=== PATIENT | male | born 1980 | race Caucasian/White ===

== ENCOUNTER → 2018-03-24 | Outpatient (CLI) | payer OTHER ==
[2016-01-20 07:17] VITALS: BP 118/70
[~2018-03-24] MED LIST: CIPR250T30 PO; HYDR-3165 PO; ONDA4TAB10 PO; TAMS0.4C97 PO
--- NOTE | 2018-03-24 13:54 | RAD ---
Two-view left toe 03/24/2018 CLINICAL INDICATION: Left toe injury after fall. COMPARISON: None. FINDINGS: No acute fracture or traumatic malalignment of the 2nd toe. Soft tissue swelling at the distal 2nd toe level. IMPRESSION: No acute osseous abnormality of the 2nd toe. Electronically signed by: Haile Capps MD (03/24/2018 1:51 PM) [id number]
== END | disposition home or self-care (01) ==
LOC: RAD 09:10
PROVIDERS: ATTEND Physician Assistant Medical
DX: S90.122A Contusion of left lesser toe(s) without damage to nail, initial encounter (principal); W20.8XXA Other cause of strike by thrown, projected or falling object, initial encounter; Y93.89 Activity, other specified; Y92.89 Other specified places as the place of occurrence of the external cause; Y99.8 Other external cause status
CPT/HCPCS: 73660

== ENCOUNTER 2020-01-14 11:31 | Emergency (ER) | payer OTHER ==
[~2020-01-14] VITALS: Ht 175.3 cm; Wt 92.8 kg
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
[2020-01-14] MEDS ORDERED: ACETAMINOPHEN 500 MG TABLET PO ONE (12:00)
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
[2020-01-14 13:08] VITALS: BP 132/72
== END 2020-01-14 13:15 | disposition home or self-care (01) ==
LOC: ER 11:31
DX: R51 Headache (principal); M54.2 Cervicalgia; M79.10 Myalgia, unspecified site; Z88.0 Allergy status to penicillin; Z88.1 Allergy status to other antibiotic agents; V49.49XA Driver injured in collision with other motor vehicles in traffic accident, initial encounter; Y93.I9 Activity, other involving external motion; Y92.488 Other paved roadways as the place of occurrence of the external cause; Y99.8 Other external cause status
CPT/HCPCS: 70450; 71045; 72125; 72170; 99285

== ENCOUNTER 2020-02-02 22:21 | Emergency (ER) | payer OTHER ==
[~2020-02-02] VITALS: Ht 175.3 cm; Wt 92.8 kg
[2020-02-02 22:31] VITALS: BP 143/72
--- NOTE | 2020-02-02 23:11 | PHYS DOC ---
Past History Past Medical History: No Pertinent History Past Surgical History: No Surgical History Smoking: Non-smoker Alcohol Use: None Drug Use: None General Adult EDM: Chief Complaint: EYE PROBLEMS HPI: HPI: Scott Don is a 39-year-old male who presents with right eye pain. He states that earlier this morning he began to have a foreign body sensation in his right eye with pain that worsened when he closes his eyes. He denies change in vision, photophobia, or pain with eye movement. 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 He denies specific trauma to the eye but states he has been using metal screws and wiping his eye while fixing the roof. Patient denies welding over the last week. He denies wearing contacts. Patient states that he has had a number of objects in his eye over the last several years. Review of Systems: Review of Systems: Constitutional: Denies fever or chills Eyes: Denies vision change and pain with motion; affirms eye pain and redness HENT: Denies nasal congestion or sore throat Respiratory: Denies cough or shortness of breath Cardiovascular: Denies chest pain or palpitations GI: Denies abdominal pain, nausea, or vomiting : Denies dysuria or hematuria Musculoskeletal: Denies back pain or joint pain Integument: Denies rash or skin lesions Neurologic: Denies headache, focal weakness or sensory changes Complete systems were reviewed and found to be within normal limits, except as documented in this note. Allergies: Allergies: Allergies Coded Allergies Type Severity Reaction Last Updated Verified Penicillins Allergy Intermediate 01/20/16 Yes cephalexin Allergy Intermediate 01/20/16 Yes Physical Exam: PE: Constitutional: Well developed, well nourished, no acute distress, non-toxic appearance HENT: Normocephalic, atraumatic, no tenderness to palpation Eyes: PERRL, EOMI, conjunctiva slightly red on the right, no discharge; on Joseph lamp exam small metal fragment seen on the cornea at about the 5 o'clock position Neck: Normal range of motion, no tenderness, supple Lungs & Thorax: No respiratory distress, equal chest rise and fall Skin: Warm, dry, no erythema, no rash Extremities: No tenderness, ROM intact, no edema Neurologic: Alert and oriented X 3, normal motor function, normal sensory function, no focal deficits noted Psychologic: Affect normal, judgment normal Current Patient Data: Vital Signs: Vital Signs Date Time Temp Pulse Resp B/P (MAP) Pulse Ox O2 Delivery O2 Flow Rate FiO2 02/02/20 22:31 97.9 70 16 143/72 (95) 97 Course & Med Decision Making: Course & Med Decision Making Patient presented with right eye pain as described above. Observation with Joseph lamp revealed metal object on the cornea. Further inspection with slit lamp revealed small metallic fragment with rust ring. Large fragment was able to be successfully removed with bent 18 gauge hypodermic needle. Small rust ring remained. Empiric ophthalmic ointment applied. Patient stable for discharge home with outpatient follow-up with ophthalmology. Discussed findings and plan with patient, who acknowledges understanding and agreement. Randy Disclaimer: Randy Disclaimer: This electronic medical record was generated, in whole or in part, using a voice recognition dictation system. Departure Departure: Impression: Primary Impression: Corneal foreign body with residual material Qualified Codes: T15.01XA - Foreign body in cornea, right eye, initial encounter Disposition: HOME/RESIDENCE PRIOR TO ADM Condition: STABLE Referrals: JARAD MESA MD (PCP) NEIL SOMERS DO Patient Instructions: Eye - Corneal Foreign Body Scripts Erythromycin Base (Erythromycin) 1 Gm Oint...g. 0.25 INCH OP QID for corneal abrasion for 5 Days, #1 TUBE Prov: STEPHANIE ESCUDERO DO 02/03/20 Justification of Admission: Justification of Admission: Justification of Admission Dx: N/A Slit Lamp Exam Procedure Indication: Right corneal foreign body Procedure: The patient was placed in the appropriate sitting position. Anesthesia was obtained with Tetracaine. Fluorescein staining was utilized. The slit lamp exam findings were as follows: Right metallic corneal foreign body with rust ring to 5 o'clock position. Bent edge of 18g hypodermic needle utilized with successful removal of metallic object and majority of rust ring. A slight rust ring remained. No Carmen sign. Empiric antibiotic ointment applied for known corneal abrasion. The patient tolerated the procedure well. Complications: Corneal abrasion due to removal of object. STEPHANIE ESCUDERO DO Feb 02, 2020 23:11
[2020-02-02] MEDS ORDERED: FLUORESCEIN 1MG EYE STRIP. OD ONE (23:15)
[2020-02-02] MEDS ORDERED: TETRACAINE 0.5% OPHTH SOLUTION 4ML BOTTLE. OD ONE (23:15)
[2020-02-02] MEDS ORDERED: DIPH,PERTUSS(ACELL),TET VAC/PF 0.5 ML SYRINGE. VAX IM ONE (23:30)
[2020-02-02] MEDS ORDERED: ERYTHROMYCIN 0.5% OPHTH OINTMENT 1GM TUBE. OD ONE (23:30)
[2020-02-03] MEDS ORDERED: ERYT1OIN6 OP (00:52)
== END 2020-02-03 01:01 | disposition home or self-care (01) ==
LOC: ER 22:21
DX: T15.01XA Foreign body in cornea, right eye, initial encounter (principal); Z88.0 Allergy status to penicillin; Z88.1 Allergy status to other antibiotic agents; X58.XXXA Exposure to other specified factors, initial encounter; Y93.89 Activity, other specified; Y92.89 Other specified places as the place of occurrence of the external cause; Y99.8 Other external cause status
CPT/HCPCS: 65222; 90471; 90715; 99283; 99284

== ENCOUNTER 2020-02-28 20:00 | Emergency (ER) | payer OTHER ==
[~2020-02-28] VITALS: Ht 175.3 cm; Wt 92.8 kg
[~2020-02-28 20:00] MED LIST changes: +ERYT1OIN6 OP
[2020-02-28] MEDS ORDERED: IV NORMAL SALINE 1,000ML 1,000 ML IV SCH (20:19)
--- NOTE | 2020-02-28 20:28 | PHYS DOC ---
Past History Past Medical History: No Pertinent History Past Surgical History: No Surgical History Smoking: Non-smoker Alcohol Use: None Drug Use: None General Adult EDM: Chief Complaint: OTHER COMPLAINTS HPI: HPI: Patient is a 39-year-old male coming in for episode of lightheadedness, burning of his hands and feet, diaphoresis, nausea, weakness. Is cleaning out the trunk of his car when all of a sudden the symptoms started. Laid down on the concrete and was unable to get up for 3 to 5 minutes. Has not been exposed any chemicals. Has not been under stress or doing heavy lifting. Denies anxiety or history of anxiety. States he is feeling better now but still has tingling in his hands and feet. Has also had dry cough symptoms symptoms started 20-30 minutes prior to arrival. Denies any personal cardiac history, mother had bypass in her 60s. Denies tobacco, alcohol, drug use. Denies any history of blood clots. Review of Systems: Review of Systems: Constitutional: Denies fever or chills Eyes: Denies change in visual acuity HENT: Denies nasal congestion or sore throat Respiratory: Dry cough Cardiovascular: Denies chest pain or edema GI: Denies abdominal pain , vomiting, bloody stools or diarrhea did have nausea : Denies dysuria Musculoskeletal: Denies back pain or joint pain Integument: Denies rash Neurologic: Denies headache, focal weakness or sensory changes Endocrine: Denies polyuria or polydipsia Lymphatic: Denies swollen glands Psychiatric: Denies depression or anxiety Heart Score: Risk Factors: Risk Factors: DM, Current or recent (<one month) smoker, HTN, HLP, family history of CAD, obesity. Risk Scores: Score 0 - 3: 2.5% MACE over next 6 weeks - Discharge Home Score 4 - 6: 20.3% MACE over next 6 weeks - Admit for Clinical Observation Score 7 - 10: 72.7% MACE over next 6 weeks - Early Invasive Strategies Allergies: Allergies: Allergies Coded Allergies Type Severity Reaction Last Updated Verified Penicillins Allergy Intermediate 01/20/16 Yes cephalexin Allergy Intermediate 01/20/16 Yes Physical Exam: PE: Constitutional: Well developed, well nourished, no acute distress, non-toxic appearance. [] HENT: Normocephalic, atraumatic, bilateral external ears normal, oropharynx moist, no oral exudates, nose normal. [] Eyes: PERRLA, EOMI, conjunctiva normal, no discharge. [] Neck: Normal range of motion, no tenderness, supple, no stridor. [] Cardiovascular: Sinus tachycardia, regular rhythm, no gallops,, no murmur [] Lungs & Thorax: Bilateral breath sounds clear to auscultation [] Abdomen: Bowel sounds normal, soft, no tenderness, no masses, no pulsatile masses. [] Skin: Warm, dry, no erythema, no rash. [] Back: No tenderness, no CVA tenderness. [] Extremities: No tenderness, no cyanosis, no clubbing, ROM intact, no edema. [] Neurologic: Alert and oriented X 3, normal motor function, normal sensory function, no focal deficits noted. [] Psychologic: Affect normal, judgement normal, mood normal. [] EKG: EKG: Sinus tachycardia, normal axis, no ectopy, no ST elevation or depression. [] Radiology/Procedures: Radiology/Procedures: CT ANGIOGRAPHY CHEST History: Cough. Congestion. Technique: CT of the chest was performed with intravenous contrast. PE protocol. Maximum intensity projection coronal and sagittal reconstructions were performed. Exposure: One or more of the following individualized dose reduction techniques were utilized for this examination: 1. Automated exposure control 2. Adjustment of the mA and/or kV according to patient size 3. Use of iterative reconstruction technique. Comparison: None Findings: Chest: No pulmonary embolism. No aortic aneurysm or dissection. No pathologic lymphadenopathy. No consolidation or pleural effusion. No pneumothorax. Calcified right upper lobe pulmonary nodule. 3 mm right upper lobe pulmonary nodule noncalcified (series 4 image 47). 2 mm left upper lobe pulmonary nodule (image 27). 5 mm lingular nodule (image 74). Upper abdomen: Hepatic steatosis. Bones: No pathologic osseous lesions. Impression: 1. No acute thoracic pathology. No pulmonary embolism. 2. Small pulmonary nodules. Recommend one-year follow-up if high risk. 3. Hepatic steatosis. [] Course & Med Decision Making: Course & Med Decision Making Pertinent Labs and Imaging studies reviewed. (See chart for details) Tachycardia resolved with fluids, elevated creatinine given IV fluids to correct for that also. Work-up negative. Discussed with patient possible presyncopal symptoms and advised to increase fluid intake and follow-up with primary care. Troponin negative x2 3 hours apart [] Dragon Disclaimer: Dragon Disclaimer: This electronic medical record was generated, in whole or in part, using a voice recognition dictation system. Departure Departure: Impression: Primary Impression: Pre-syncope Disposition: 01 DC HOME SELF CARE/HOMELESS Condition: STABLE Referrals: JARAD MESA MD (PCP) Patient Instructions: Dehydration, Adult JARED MCKEON MD Feb 28, 2020 20:28
[2020-02-28] MEDS ORDERED: ACETAMINOPHEN 500 MG TABLET PO ONE ×2 (20:54→21:00)
[2020-02-28 21:04] LABS: BASO # 0.1 x10^3/uL (0.0-0.2); BASO % 1 % (0-3); EOS # 0.1 x10^3/uL (0.0-0.7); EOS % 1 % (0-3); HEMATOCRIT 42.2 % (39.0-53.0); HEMOGLOBIN 13.7 g/dL (13.0-17.5); LYMPH # 1.8 x10^3/uL (1.0-4.8); LYMPH % 16 % (24-48); MEAN CORPUSCULAR HEMOGLOBIN 26 pg (25-35); MEAN CORPUSCULAR HGB CONC 32 g/dL (31-37); MEAN CORPUSCULAR VOLUME 81 fL (79-100); MONO # 0.5 x10^3/uL (0.0-1.1); MONO % 4 % (0-9); NEUT # 8.7 x10^3uL (1.8-7.7); NEUT % 78 % (31-73); PLATELET COUNT 255 x10^3/uL (140-400); RED BLOOD COUNT 5.22 x10^6/uL (4.30-5.70); RED CELL DISTRIBUTION WIDTH 13.9 % (11.5-14.5); WHITE BLOOD COUNT 11.2 x10^3/uL (4.0-11.0)
[2020-02-28 21:05] LABS: CALCIUM 9.4 mg/dL (8.5-10.1); CREATININE 1.5 mg/dL (0.7-1.3); GFR 51.6; POTASSIUM 4.1 mmol/L (3.5-5.1)
[2020-02-28 21:26] LABS: ALBUMIN 3.9 g/dL (3.4-5.0); MAGNESIUM 1.9 mg/dL (1.8-2.4); TOTAL BILIRUBIN 0.2 mg/dL (0.2-1.0); TOTAL PROTEIN 7.9 g/dL (6.4-8.2)
--- NOTE | 2020-02-28 21:26 | RAD ---
CHEST PA LATERAL History: Reason: cough, chills / Spl. Instructions: / History: Comparison: 01/14/2020. Findings: Frontal and lateral views of the chest were obtained. The cardiomediastinal silhouette is normal. Pulmonary vasculature is normal. The lungs are clear. No pleural effusion or pneumothorax is seen. There is no acute bone abnormality. IMPRESSION: No acute cardiopulmonary process. Electronically signed by: Javon Machado MD (02/28/2020 9:23 PM) [facility]
[2020-02-28] MEDS ORDERED: IOHEXOL 350 MG/ML 100 ML VIAL. IV ONE (22:00)
[2020-02-28] MEDS ORDERED: IV NORMAL SALINE 1,000ML 1,000 ML IV ONE (22:00)
--- NOTE | 2020-02-28 23:03 | RAD ---
CT ANGIOGRAPHY CHEST History: Cough. Congestion. Technique: CT of the chest was performed with intravenous contrast. PE protocol. Maximum intensity projection coronal and sagittal reconstructions were performed. Exposure: One or more of the following individualized dose reduction techniques were utilized for this examination: 1. Automated exposure control 2. Adjustment of the mA and/or kV according to patient size 3. Use of iterative reconstruction technique. Comparison: None Findings: Chest: No pulmonary embolism. No aortic aneurysm or dissection. No pathologic lymphadenopathy. No consolidation or pleural effusion. No pneumothorax. Calcified right upper lobe pulmonary nodule. 3 mm right upper lobe pulmonary nodule noncalcified (series 4 image 47). 2 mm left upper lobe pulmonary nodule (image 27). 5 mm lingular nodule (image 74). Upper abdomen: Hepatic steatosis. Bones: No pathologic osseous lesions. Impression: 1. No acute thoracic pathology. No pulmonary embolism. 2. Small pulmonary nodules. Recommend one-year follow-up if high risk. 3. Hepatic steatosis. Electronically signed by: Thuan Garcia DO (02/28/2020 11:00 PM) [facility]
[2020-02-29 00:06] VITALS: BP 127/84
--- NOTE | 2020-02-29 03:46 | EKG ---
[address] [address] Test Date: 2020-02-28 Test Time: 20:49:33 Pat Name: MIGDALIA COSTELLO Department: Room: Gender: M [employer] Installer: : 1980 Requested By: JARED MCKEON Order Number: [id number] Reading MD: Measurements Intervals [place] Rate: 108 P: 38 MS: 156 QRS: 7 QRSD: 96 T: 24 QT: 338 QTc: 457 Interpretive Statements SINUS TACHYCARDIA OTHERWISE NORMAL ECG RI6.02 No previous ECG available for comparison
== END 2020-02-29 00:51 | disposition home or self-care (01) ==
LOC: ER 20:00
DX: R55 Syncope and collapse (principal); Z88.0 Allergy status to penicillin; Z88.1 Allergy status to other antibiotic agents
CPT/HCPCS: 36415; 71046; 71275; 80053; 83735; 83880; 84484; 85025; 93005; 96360; 96361; 99285; J7030; Q9967

== ENCOUNTER 2020-07-30 09:03 | Emergency (ER) | payer OTHER ==
[~2020-07-30] VITALS: Ht 175.3 cm; Wt 96.0 kg
[2020-07-30 09:05] VITALS: BP 142/96
--- NOTE | 2020-07-30 09:50 | PHYS DOC ---
Past History Past Medical History: No Pertinent History, Other Additional Past Medical Histor: chronic necl pain Past Surgical History: No Surgical History Smoking: Non-smoker Alcohol Use: Occasionally Drug Use: None Adult General Chief Complaint Chief Complaint: ABDOMINAL PAIN HPI HPI Patient is a 39yo male presents for right-sided abdominal pain. Onset was ~2mo ago without known inciting event or trauma. Nothing known makes better or worse. Pain is deep and non-radiating located in his RLQ/right flank. Timing has waxed and waned, reports yesterday that pain was severe throughout the day and he almost came into the ER but waited until he was seen by PCP. Today, he went to PCP office and saw MECHANICAL TECHNICAL SERVICE SPECIALIST who was concerned based on physical exam of his abdomen and sent him to our ER for further evaluation. Patient denies any systemic symptoms, CP, SHOB, dysuria, changes in bladder or bowel function or any neurologic findings. He denies any significant medical history, no prior abdominal surgeries. Review of Systems Review of Systems Fourteen body systems of review of systems have been reviewed. See HPI for pertinent positives and negative responses, other godoy all other systems are negative, non-pertinent or non-contributory Allergies Allergies Allergies Coded Allergies Type Severity Reaction Last Updated Verified Penicillins Allergy Intermediate 01/20/16 Yes cephalexin Allergy Intermediate 01/20/16 Yes Physical Exam Physical Exam Constitutional: Well developed, well nourished, no acute distress, non-toxic appearance. HENT: Normocephalic, atraumatic, bilateral external ears normal, oropharynx moist, no oral exudates, nose normal. Eyes: PERRLA, EOMI, conjunctiva normal, no discharge. Neck: Normal range of motion, no tenderness, supple, no stridor. Cardiovascular: Heart rate regular, sinus rhythm, no murmurs rubs or gallops Lungs & Thorax: Bilateral breath sounds clear to auscultation Abdomen: Bowel sounds normal, soft, tender to palpation in right upper and lower quadrants with negative Esquivel sign but positive Rovsing sign, no rebound, no masses, no pulsatile masses. Nonsurgical abdomen, no peritoneal signs Skin: Warm, dry, no erythema, no rash. Back: No tenderness, no CVA tenderness. Extremities: No tenderness, no cyanosis, no clubbing, ROM intact, no edema. Neurologic: Alert and oriented X 3, grossly normal motor & sensory function, no focal deficits noted. Psychologic: Affect normal, judgement normal, mood normal. Current Patient Data Vital Signs Vital Signs Date Time Temp Pulse Resp B/P (MAP) Pulse Ox O2 Delivery O2 Flow Rate FiO2 07/30/20 09:05 97.5 101 16 142/96 (111) 97 Room Air Lab Results Laboratory Tests Test 07/30/20 09:16 White Blood Count 10.6 x10^3/uL Red Blood Count 4.92 x10^6/uL Hemoglobin 13.5 g/dL Hematocrit 41.0 % Mean Corpuscular Volume 83 fL Mean Corpuscular Hemoglobin 27 pg Mean Corpuscular Hemoglobin Concent 33 g/dL Red Cell Distribution Width 14.1 % Platelet Count 201 x10^3/uL Neutrophils (%) (Auto) 71 % Lymphocytes (%) (Auto) 18 % Monocytes (%) (Auto) 9 % Eosinophils (%) (Auto) 2 % Basophils (%) (Auto) 1 % Neutrophils # (Auto) 7.5 x10^3uL Lymphocytes # (Auto) 1.9 x10^3/uL Monocytes # (Auto) 0.9 x10^3/uL Eosinophils # (Auto) 0.2 x10^3/uL Basophils # (Auto) 0.1 x10^3/uL Sodium Level 142 mmol/L Potassium Level 4.4 mmol/L Chloride Level 107 mmol/L Carbon Dioxide Level 25 mmol/L Anion Gap 10 Blood Urea Nitrogen 15 mg/dL Creatinine 1.0 mg/dL Estimated GFR (Cockcroft-Gault) 82.3 BUN/Creatinine Ratio 15 Glucose Level 118 mg/dL Calcium Level 9.0 mg/dL Total Bilirubin 0.2 mg/dL Aspartate Amino Transf (AST/SGOT) 25 U/L Alanine Aminotransferase (ALT/SGPT) 43 U/L Alkaline Phosphatase 74 U/L Total Protein 7.6 g/dL Albumin 4.0 g/dL Albumin/Globulin Ratio 1.1 Lipase 136 U/L Current Medications Medications (Trade) Dose Ordered Sig/Hector Route PRN Reason Start Time Stop Time Status Last Admin Dose Admin Iohexol (Omnipaque 300 Mg/ml) 75 ml 1X ONCE IV 07/30/20 10:00 07/30/20 10:03 DC 07/30/20 10:10 Info (Do NOT chart on this entry -- for MONITORING) 1 each PRN DAILY PRN MC SEE COMMENTS 3/15/21 10:15 07/30/20 11:33 DC EKG EKG [] Radiology/Procedures Radiology/Procedures PROCEDURE: CT ABD PELV W/ IV CONTRST ONLY Examination: CT of the abdomen pelvis with IV contrast History: Right lower quadrant abdominal pain COMPARISON: 01/20/2016 TECHNIQUE: Axial CT images of the abdomen pelvis were performed with IV contrast. Coronal and sagittal reformats are performed. Exposure: One or more of the following individualized dose reduction techniques were utilized for this examination: 1. Automated exposure control 2. Adjustment of the mA and/or kV according to patient size 3. Use of iterative reconstruction technique. FINDINGS: The bibasilar lungs are clear. No evidence of free air identified in the abdomen Diffuse degree attenuation noted in the liver likely hepatic steatosis. The spleen, adrenals grossly appears unremarkable. The gallbladder is mildly distended. The stomach is mildly distended with visualized pancreas grossly appears unremarkable The visualized pancreas grossly appears unremarkable. Small bowel is nondilated. Feces and gas noted in the colon Urinary bladder is mildly distended The appendix is normal The bilateral kidneys enhance symmetrically. There is a 5.8 x 4.5 x 4.5 cm s olid-appearing mass identified in the right abdomen just anterior to the ascending colon, best visualized on series 2 image 48. No evidence of lytic bony destructive lesion. IMPRESSION: 1. A 5.8 cm solid-appearing mass identified in the right abdomen just anterior to the ascending colon, best visualized on series 2 image 48. Differential includes soft tissue mass like desmoid,sarcoma or malignancy or metastasis or enlarged lymph node. 2. Hepatic steatosis. Electronically signed by: Horacio Mercer MD (07/30/2020 10:48 AM) [id number] Heart Score C/O Chest Pain: N/A Risk Factors: Risk Factors: DM, Current or recent (<one month) smoker, HTN, HLP, family history of CAD, obesity. Risk Scores: Risk Factors: DM, Current or recent (<one month) smoker, HTN, HLP, family history of CAD, obesity. Course & Med Decision Making Course & Med Decision Making Hemodynamically stable patient with history and physical concerning for non- surgical abdominal pathology Diagnostic workup ordered and reviewed at length with patient. I discussed c oncerning CT AP findings at length with patient I called patient's PCP and discussed need for admission vs close outpatient foll ow-up and decision was made for close outpatient follow-up to ensure referral for continued workup such as biopsy I provided patient with short course of narcotic pain medication for PRN use for severe pain to use in the interim prior to outpatient PCP and specialist follow-up All questions and concerns addressed prior to ER departure in stable condition Randy Disclaimer Dragon Disclaimer This electronic medical record was generated, in whole or in part, using a voice recognition dictation system. Departure Departure: Impression: Primary Impression: Abdominal mass Disposition: DC HOME SELF CARE/HOMELESS Condition: STABLE Referrals: JARAD MESA MD (PCP) Additional Instructions: As discussed prior to ER departure, your ER visit showed no emergent and/or surgical pathology. With that said, I did disclose findings of your CT abdomen which was concerning for a 6 cm mass. I discussed the differential with you at length. I discussed neck steps of care that will involve meeting with your primary care physician in the outpatient setting and being referred to a spe cialist for further management. I called your primary care physician during your ER visit today and discussed these findings with him, he reports that he will be placing your referral shortly. If any concerning signs or symptoms present prior to outpatient follow-up please do not hesitate to come back for repeat evaluation. It was a pleasure to take care of you and I wish you the best going forward Scripts Hydrocodone/Acetaminophen (Hydrocodone-Acetamin 5-325 mg) 1 Each Tablet 1 EACH PO Q4-6HRS PRN for SEVERE PAIN 7-10, #25 TAB Prov: JOCELINE CARTER DO 07/30/20 JOCELINE CARTER DO Jul 30, 2020 09:50
[2020-07-30] MEDS ORDERED: IOHEXOL 300 MG/ML 75 ML VIAL. IV ONE (10:00)
[2020-07-30 10:14] LABS: BASO # 0.1 x10^3/uL (0.0-0.2); BASO % 1 % (0-3); EOS # 0.2 x10^3/uL (0.0-0.7); EOS % 2 % (0-3); HEMOGLOBIN 13.5 g/dL (13.0-17.5); LYMPH # 1.9 x10^3/uL (1.0-4.8); LYMPH % 18 % (24-48); MEAN CORPUSCULAR HEMOGLOBIN 27 pg (25-35); MEAN CORPUSCULAR HGB CONC 33 g/dL (31-37); MEAN CORPUSCULAR VOLUME 83 fL (79-100); MONO # 0.9 x10^3/uL (0.0-1.1); MONO % 9 % (0-9); NEUT # 7.5 x10^3uL (1.8-7.7); NEUT % 71 % (31-73); PLATELET COUNT 201 x10^3/uL (140-400); RED BLOOD COUNT 4.92 x10^6/uL (4.30-5.70); RED CELL DISTRIBUTION WIDTH 14.1 % (11.5-14.5); WHITE BLOOD COUNT 10.6 x10^3/uL (4.0-11.0)
[2020-07-30] MEDS ORDERED: CONTRAST GIVEN. MC PRN (10:15)
[2020-07-30 10:19] LABS: GFR 82.3; POTASSIUM 4.4 mmol/L (3.5-5.1)
[2020-07-30 10:24] LABS: ALBUMIN/GLOBULIN RATIO 1.1 (1.0-1.7); TOTAL BILIRUBIN 0.2 mg/dL (0.2-1.0); TOTAL PROTEIN 7.6 g/dL (6.4-8.2)
--- NOTE | 2020-07-30 10:51 | RAD ---
Examination: CT of the abdomen pelvis with IV contrast History: Right lower quadrant abdominal pain COMPARISON: 01/20/2016 TECHNIQUE: Axial CT images of the abdomen pelvis were performed with IV contrast. Coronal and sagitta l reformats are performed. Exposure: One or more of the following individualized dose reduction techniques were utilized for th is examination: 1. Automated exposure control 2. Adjustment of the mA and/or kV according to patien t size 3. Use of iterative reconstruction technique. FINDINGS: The bibasilar lungs are clear. No evidence of free air identified in the abdomen Diffuse degree attenuation noted in the liver likely hepatic steatosis. The spleen, adrenals grossly appears unremarkable. The gallbladder is mildly distended. The stomach is mildly distended with visua lized pancreas grossly appears unremarkable The visualized pancreas grossly appears unremarkable. Small bowel is nondilated. Feces and gas noted in the colon Urinary bladder is mildly distended The appendix is normal The bilateral kidneys enhance symmetrically. There is a 5.8 x 4.5 x 4.5 cm solid-appearing mass ident ified in the right abdomen just anterior to the ascending colon, best visualized on series 2 image 48 . No evidence of lytic bony destructive lesion. IMPRESSION: 1. A 5.8 cm solid-appearing mass identified in the right abdomen just anterior to the ascending colon , best visualized on series 2 image 48. Differential includes soft tissue mass like desmoid,sarcoma o r malignancy or metastasis or enlarged lymph node. 2. Hepatic steatosis. Electronically signed by: Horacio Mercer MD (07/30/2020 10:48 AM) [id number]
[2020-07-30] MEDS ORDERED: HYDR-2759 PO (11:27)
== END 2020-07-30 11:28 | disposition home or self-care (01) ==
LOC: ER 09:03
DX: R19.00 Intra-abdominal and pelvic swelling, mass and lump, unspecified site (principal); R10.11 Right upper quadrant pain; R10.31 Right lower quadrant pain; Z88.0 Allergy status to penicillin; Z88.1 Allergy status to other antibiotic agents
CPT/HCPCS: 36415; 74177; 80053; 83690; 85025; 99285; Q9967

== ENCOUNTER 2020-08-03 23:07 | Emergency (ER) | payer OTHER ==
[~2020-08-03 23:07] MED LIST changes: +HYDR-2759 PO
--- NOTE | 2020-08-03 23:12 | PHYS DOC ---
Past History Past Medical History: No Pertinent History, Constipation, Other Additional Past Medical Histor: chronic necl pain Past Surgical History: No Surgical History Smoking: Non-smoker Alcohol Use: Occasionally Drug Use: None General Adult HPI: HPI: Pt. complains of constipation. During check in had a large stool and elected not to be seen. Left from checked in. Patient is a 39 year old male who presents with above hx and complaints consti pation Review of Systems: Review of Systems: GI: Complaints of abdominal pain,constipation Allergies: Allergies: Allergies Coded Allergies Type Severity Reaction Last Updated Verified Penicillins Allergy Intermediate 01/20/16 Yes cephalexin Allergy Intermediate 01/20/16 Yes Physical Exam: PE: No exam- pt. left from check in EKG: EKG: [] Radiology/Procedures: Radiology/Procedures: [] Heart Score: C/O Chest Pain: N/A Risk Factors: Risk Factors: DM, Current or recent (<one month) smoker, HTN, HLP, family history of CAD, obesity. Risk Scores: Score 0 - 3: 2.5% MACE over next 6 weeks - Discharge Home Score 4 - 6: 20.3% MACE over next 6 weeks - Admit for Clinical Observation Score 7 - 10: 72.7% MACE over next 6 weeks - Early Invasive Strategies Course & Med Decision Making: Course & Med Decision Making Pertinent Labs and Imaging studies reviewed. (See chart for details). Pt. had no interview or exam left from lobby during check in after a large stool. Hx. complaints of constipation. [] Dragon Disclaimer: Dragon Disclaimer: This electronic medical record was generated, in whole or in part, using a voice recognition dictation system. Departure Departure: Referrals: JARAD MESA MD (PCP) RAGHAVENDRA MORTENSEN MD Aug 03, 2020 23:12
[2020-08-04] MEDS ORDERED: POLY17PO5 PO (13:18)
[2020-08-06] MEDS ORDERED: ONDA4TAB12 PO (13:00)
[2020-08-06] MEDS ORDERED: SIME80TA13 PO (13:00)
== END 2020-08-03 23:18 | disposition left against medical advice (07) ==
LOC: ER 23:07
DX: K59.00 Constipation, unspecified (principal); R10.9 Unspecified abdominal pain; Z88.0 Allergy status to penicillin; Z88.1 Allergy status to other antibiotic agents; Z53.21 Procedure and treatment not carried out due to patient leaving prior to being seen by health care provider

== ENCOUNTER 2020-08-04 12:19 | Emergency (ER) | payer OTHER ==
[~2020-08-04] VITALS: Ht 175.3 cm; Wt 94.0 kg
[2020-08-04 12:19] VITALS: BP 115/77
--- NOTE | 2020-08-04 12:29 | PHYS DOC ---
Past History Past Medical History: No Pertinent History, Constipation, Other Additional Past Medical Histor: chronic necl pain (STEPHANIE DELEON APRN) Past Surgical History: No Surgical History (STEPHANIE DELEON APRN) Smoking: Non-smoker Alcohol Use: Occasionally Drug Use: None (STEPHANIE DELEON APRN) Adult General Chief Complaint Chief Complaint: CONSTIPATION HPI HPI Patient is a 39-year-old male presents to the emergency department complaining of constipation for the past week. Patient states he has a mass on his abdominal wall on the right upper quadrant for which he sees a surgeon this Thursday at for evaluation of surgery. Patient states he has been taking hydrocodone every 4 hours for the past week however has not taken any for the p ast 3 days. Patient states he has been unable to have a bowel movement since 07/30/2020. Patient reports she has been drinking "lots of water to help ". Patient states last night he drank 3 each 60 mL Ducolox [id number]-[id number] laxatives from [facility] and had his give him 3 fleets enemas last night. Patient states he had a large watery bowel movement after the enemas, had satisfactory pain relief for approximately 5 hours and was able to sleep. Patient denies seeing any blood in his stool. Patient states he awoke this morning with abdominal pain in the left lower quadrant rating a 10/10 on a 1-10 pain scale. Patient denies any nausea or vomiting. Patient denies shortness of breath, recent fever or chills, or chest pain. Patient states he is a non- smoker, does not drink alcohol, does not use any illicit drugs. Patient reports a allergy to penicillin and Keflex, takes no prescription medications at home at this time, has no surgical history. (STEPHANIE DELEON CONTENT DEVELOPMENT SPECIALIST) Review of Systems Review of Systems 14 body systems of review of systems have been reviewed. See HPI for pertinent positives and negative responses, otherwise all other systems are negative, nonpertinent or noncontributory. (STEPHANIE DELEON APRN) Allergies Allergies Allergies Coded Allergies Type Severity Reaction Last Updated Verified Penicillins Allergy Intermediate 01/20/16 Yes cephalexin Allergy Intermediate 01/20/16 Yes (STEPHANIE DELEON CONTENT DEVELOPMENT SPECIALIST) Physical Exam Physical Exam Constitutional: Well developed, well nourished, no acute distress, non-toxic appearance. 39-year-old male, holding abdomen in the left lower quadrant during exam. HENT: Normocephalic, atraumatic, bilateral external ears normal, nose normal in appearance. Eyes: Normal conjunctiva without drainage from eyes visually, patient tracking normally. Cardiovascular:Heart rate regular rhythm, tachycardic with heart rate of 104 d uring exam. Lungs & Thorax: No audible adventitious lung sounds, regular respiratory rate, in no respiratory distress Abdomen: Bowel sounds normal, tenderness to palpation right lateral upper quadrant with mass and abdominal wall appreciated, abdomen distended, pain to palpation left lower quadrant, no other masses appreciated, no areas of ecchymosis in the abdomen, no hernias appreciated. Skin: Warm, dry, no erythema, no rash. Back: No tenderness to palpation of the back. Extremities: Patient moving all extremities during exam. No signs of edema. Neurologic: Alert and oriented X 3, normal motor function, normal sensory function, no focal deficits noted. Psychologic: Affect normal, judgement normal, mood normal. GI: Patient placed in left lateral recumbent position, external exam of rectum did not reveal any external hemorrhoids, digital exam of rectum did not appreciate any masses, scant softened stool in rectal vault, no masses appreciated during digital rectal exam. Patient tolerated well. (STEPHANIE DELEON APRN) EKG EKG [] (STEPHANIE DELEON APRN) Radiology/Procedures Radiology/Procedures PATIENT: MIGDALIA COSTELLO ACCOUNT: [id number] : 1980 LOCATION: ER AGE: 39 SEX: M EXAM STATUS: REG ER ORD. PHYSICIAN: STEPHANIE DELEON APRN REASON: CONSTIPATION, ABDOMINAL PAIN PROCEDURE: KUB XR ABDOMEN 1V History: Reason: CONSTIPATION, ABDOMINAL PAIN / Spl. Instructions: / History: Technique: Supine view the abdomen. Comparison: CT July 30, 2020 Findings: Mild small bowel gas. Air scattered throughout the colon. Mild colonic stool burden. Sclerotic lesion within the left femoral neck, likely bone island. Impression: 1. Nonobstructed bowel gas pattern. Electronically signed by: Thuan Garcia DO (08/04/2020 12:54 PM) [facility] DICTATED AND SIGNED BY: THUAN GARCIA DO DATE: 08/04/20 1252 CC: STEPHANIE DELEON APRN; JARAD MESA MD ~MTH0 0 (STEPHANIE DELEON APRN) Heart Score C/O Chest Pain: No Risk Factors: Risk Factors: DM, Current or recent (<one month) smoker, HTN, HLP, family history of CAD, obesity. Risk Scores: Risk Factors: DM, Current or recent (<one month) smoker, HTN, HLP, family history of CAD, obesity. (STEPHANIE DELEON APRN) Course & Med Decision Making Course & Med Decision Making Pertinent Labs and Imaging studies reviewed. (See chart for details) 39-year-old male, vital signs reviewed, presents to the emergency department concerning constipation for the past 5 days, physical examination concerning for constipation versus bowel obstruction. Will order KUB, perform rectal digital exam after x-ray imaging. Patient is amenable to this plan. X-ray imaging revealed mild scattered bowel gas pattern, digital rectal exam revealed scant soft stool in rectal vault, will treat with magnesium citrate in the ED today. Will discharge home with prescription for MiraLAX. Discussed with patient diagnosis of constipation, most likely from hydrocodone pain medication use, magnesium citrate use, MiraLAX use, increase fluid intake, keep appointment with surgeon on Thursday. Discussed with surgeon today's ER visit, follow-up with primary care this week to manage pain control and constipation problems. Patient gave verbal understanding of discharge home instructions, follow-up with surgeon, follow-up with primary care physician, medication use, return to ER precautions, patient was discharged home. (STEPHANIE DELEON APRN) Course & Med Decision Making I oversaw on the above date of service of this patient and discussed the care with the BLOCK ENGRAVER. I agree with the findings, plan of care, and disposition as documented. Electronically signed, Joceline Carter DO (JOCELINE CARTER DO) Randy Disclaimer Dragon Disclaimer This electronic medical record was generated, in whole or in part, using a voice recognition dictation system. (STEPHANIE DELEON APRN) Departure Departure: Impression: Primary Impression: Constipation Additional Impression: Abdominal mass Disposition: 01 DC HOME SELF CARE/HOMELESS Condition: GOOD Referrals: JARAD MESA MD (PCP) Patient Instructions: Constipation, Adult Additional Instructions: Please take medications as prescribed, follow-up with your primary care Dr. Ng for ongoing pain management and constipation problems, please keep your appointment with the surgeon at , let your surgeon and Dr. Carbone know of your visit today in the emergency department and that you had a [facility] x- ray imaging performed. Please return to the emergency department for worsening symptoms or other concerns. EMERGENCY DEPARTMENT GENERAL DISCHARGE INSTRUCTIONS Thank you for coming to [facility] (ED) today and trusting us with you care. We trust that you had a positivie experience in our Emergency Department. If you wish to speak to the department management, you may call the director at [phone]. YOUR FOLLOW UP INSTRUCTIONS ARE FOLLOWS: 1. Do you have a private Doctor? If you do not have a private doctor, please ask for a resource list of physicians or clinics that may be able to assist you with follow up care. 2. The Emergency Physician has interpreted your x-rays. The X-Ray specialist will also review them. If there is a change in the findings, you will be notified in 48 hours when at all possible. 3. A lab test or culture has been done, your results will be reviewed and you will be notified if you need a change in treatment. ADDITIONAL INSTRUCTIONS AND INFORMATION: 1. Your care today has been supervised by a physician who is specially trained in emergency care. Many problems require more than one evaluation for a complete diagnosis and treatment. We recommend that you schedule your follow up appointment as recommended to ensure complete treatment of you illness or injury. If you are unable to obtain follow up care and continue to have a problem, or if your condition worsens, we recommend that you return to the ED. 2. We are not able to safely determine your condition over the phone nor are we able to give sound medical advice over the phone. For these safety reasons, if you call for medical advice we will ask you to come to the ED for further evaluation. 3. If you have any questions regarding these discharge instructions please call the ED at [phone]. SAFETY INFORMATION: In the interest of safety, wellness, and injury prevention; we encourage you to wear your sealbelt, if you smoke; quite smoking, and we encourage family to use a protective helmet for bicycling and other sporting events that present an increased risk for head injury. IF YOUR SYMPTOMS WORSEN OR NEW SYMPTOMS DEVELOP, OR YOU HAVE CONCERNS ABOUT YOUR CONDITION; OR IF YOUR CONDITION WORSENS WHILE YOU ARE WAITING FOR YOUR FOLLOW UP APPOINTMENT; EITHER CONTACT YOUR PRIMARY CARE DOCTOR, THE PHYSICIAN WHOSE NAME AND NUMBER YOU WERE GIVEN, OR RETURN TO THE ED IMMEDIATELY. Scripts Polyethylene Glycol 3350 (MIRALAX) 17 Gm Powd.pack 1 PACKET PO DAILY for constipation for 2 Days, #2 PACKET 0 Refills dissolve in water Prov: STEPHANIE DELEON APRN 08/04/20 Problem Qualifiers Primary Impression: Constipation Constipation type: unspecified constipation type Qualified Codes: K59.00 - Constipation, unspecified Additional Impression: Abdominal mass Abdominal location: right upper quadrant Qualified Codes: R19.01 - Right upper quadrant abdominal swelling, mass and lump STEPHANIE DELEON APRN Aug 04, 2020 12:29 JOCELINE CARTER DO Aug 05, 2020 06:29
--- NOTE | 2020-08-04 12:57 | RAD ---
XR ABDOMEN 1V History: Reason: CONSTIPATION, ABDOMINAL PAIN / Spl. Instructions: / History: Technique: Supine view the abdomen. Comparison: CT July 30, 2020 Findings: Mild small bowel gas. Air scattered throughout the colon. Mild colonic stool burden. Sclerotic lesion within the left femoral neck, likely bone island. Impression: 1. Nonobstructed bowel gas pattern. Electronically signed by: Thuan Garcia DO (08/04/2020 12:54 PM) [facility]
[2020-08-04] MEDS ORDERED: MAGNESIUM CITRATE 296 ML SOLUTION. PO ONE (13:15)
[2020-08-04] MEDS ORDERED: POLY17PO5 PO (13:18)
[2020-08-06] MEDS ORDERED: ONDA4TAB12 PO (13:00)
[2020-08-06] MEDS ORDERED: SIME80TA13 PO (13:00)
== END 2020-08-04 13:23 | disposition home or self-care (01) ==
LOC: ER 12:19
DX: K59.00 Constipation, unspecified (principal); R19.01 Right upper quadrant abdominal swelling, mass and lump; R10.32 Left lower quadrant pain; G89.29 Other chronic pain; Z88.0 Allergy status to penicillin; Z88.1 Allergy status to other antibiotic agents
CPT/HCPCS: 74018; 99283

== ENCOUNTER 2020-08-04 18:42 | Observation (INO) | payer OTHER ==
[~2020-08-04] VITALS: Ht 175.3 cm; Wt 97.7 kg
[~2020-08-04 18:42] MED LIST changes: +POLY17PO5 PO
[2020-08-04 19:21] VITALS: BP 102/72
[2020-08-04] MEDS ORDERED: ZOLPIDEM 5 MG TABLET. PO PRN (19:30)
[2020-08-04] MEDS ORDERED: ACETAMINOPHEN 500 MG TABLET PO PRN (19:30)
[2020-08-04] MEDS ORDERED: MINERAL OIL 133 ML ENEMA. PR ONE (20:00)
[2020-08-04] MEDS: ONDANSETRON ODT 4 MG TAB.RAPDIS PO PRN (20:02)
[2020-08-04] MEDS: IV NORMAL SALINE 1,000ML 1,000 ML IV SCH (20:02)
[2020-08-04 20:12] LABS: CALCIUM 9.4 mg/dL (8.5-10.1); CREATININE 1.2 mg/dL (0.7-1.3); GFR 66.7; POTASSIUM 3.8 mmol/L (3.5-5.1)
[2020-08-04 20:15] LABS: BASO # 0.1 x10^3/uL (0.0-0.2); BASO % 1 % (0-3); EOS % 0 % (0-3); HEMATOCRIT 42.5 % (39.0-53.0); HEMOGLOBIN 14.2 g/dL (13.0-17.5); LYMPH # 1.3 x10^3/uL (1.0-4.8); LYMPH % 9 % (24-48); MEAN CORPUSCULAR HEMOGLOBIN 27 pg (25-35); MEAN CORPUSCULAR HGB CONC 33 g/dL (31-37); MEAN CORPUSCULAR VOLUME 81 fL (79-100); MONO # 1.1 x10^3/uL (0.0-1.1); MONO % 8 % (0-9); NEUT # 12.4 x10^3uL (1.8-7.7); NEUT % 83 % (31-73); PLATELET COUNT 291 x10^3/uL (140-400); RED BLOOD COUNT 5.27 x10^6/uL (4.30-5.70); RED CELL DISTRIBUTION WIDTH 13.6 % (11.5-14.5); WHITE BLOOD COUNT 14.9 x10^3/uL (4.0-11.0)
[2020-08-04 20:39] LABS: % LYMPHS 6 % (24-48); % MONOS 6 % (0-10); % SEGS 88 % (35-66); PLT ESTIMATE ADEQUATE (ADEQUATE)
[2020-08-05 08:37] VITALS: BP 129/89
--- NOTE | 2020-08-05 09:22 | RAD ---
XR ABDOMEN COMP ACUTE INDICATION: constipation, increased abdominal pain / Spl. Instructions: / History: . COMPARISON STUDY: None. FINDINGS: Lungs: Normal lung volume. No pulmonary mass or consolidation. The tracheobronchial tree and hilar st ructures are normal. Pleura: No pleural effusion or pneumothorax. Heart and Mediastinum: The cardiomediastinal silhouette is normal. The great vessels of the thorax ar e normal. Abdomen: Nonobstructive bowel gas pattern. No free air. IMPRESSION: 1. Nonobstructive bowel gas pattern. No free air. 2. No consolidation. Electronically signed by: Papi Zamorano MD (08/05/2020 9:20 AM) [id number]
[2020-08-05] MEDS ORDERED: MAGNESIUM CITRATE 296 ML SOLUTION. PO ONE (09:30)
[2020-08-05 11:04] VITALS: BP 110/79
[2020-08-05] MEDS ORDERED: METHYLNALTREXONE 12 MG/0.6 ML VIAL. SQ ONE (11:45)
[2020-08-05] MEDS: IV NORMAL SALINE 1,000ML 1,000 ML IV SCH ×2 (12:16→20:26)
[2020-08-05] MEDS: ONDANSETRON ODT 4 MG TAB.RAPDIS PO PRN (12:17)
--- NOTE | 2020-08-05 13:07 | HP ---
ADMIT DATE: HISTORY OF PRESENT ILLNESS: A 39-year-old male comes in with severe abdominal pain. The patient was noted to have an abdominal mass in his abdomen on the right side. The patient, however, notes that he has been having severe pain, has not had a bowel movement in several days. He has tried multiple Fleet's enemas and the patient is markedly distended and painful. The patient also notes some vomiting with brownish material and outside of that extreme pain of 10/10. The patient was admitted for further evaluation of this bowel impaction, possible obstruction by his mass in the abdominal area. PAST MEDICAL HISTORY: Possible cancer in the right abdominal wall mass as noted. FAMILY HISTORY: Positive for suicide, [place]'s disease, hypertension and coronary artery disease with CABG. ALLERGIES: PENICILLIN and KEFLEX. SOCIAL HISTORY: The patient denies smoking, alcohol to any extent and no drug use. The patient is a full code. MEDICATIONS: The patient's medications at home, polyethylene glycol and he had been taking hydrocodone. REVIEW OF SYSTEMS: As noted of severe abdominal pain, 10/10; nausea or vomiting. No melena, hematochezia, hematemesis. No chest pain, shortness of breath. PHYSICAL EXAMINATION: GENERAL: This is a pleasant white male, in moderate amount of pain, holding his abdomen. VITAL SIGNS: Blood pressure 102/70, respiratory rate 24, pulse 122, afebrile, 95% on room air. HEENT: The patient's head was atraumatic, normocephalic. Eyes: PERRLA without jaundice. Mouth and throat were normal. NECK: Supple. LUNGS: Clear. ABDOMEN: Markedly distended and markedly tender, guarding and pulling my hand away from his right side. The patient otherwise had positive bowel sounds. The patient's stool was hemoccult negative. EXTREMITIES: No clubbing, cyanosis or edema. NEUROLOGIC: Intact. LABORATORY DATA: Labs count did show an elevated white count of 14.9. Chemistries were basically stable except for blood sugar of 135. ASSESSMENT AND PLAN: The patient will be admitted for further evaluation of his abdominal pain with possible bowel obstruction, severe impaction of stool, right abdominal wall mass internal possible cancerous, elevated white count. We will try variety of laxatives and make further evaluation once he has been able to evacuate his bowel. JARAD MESA MD DR: KAROLINE/rajni JOB#: [id number] / [id number]
[2020-08-05 15:05] VITALS: BP 115/76
[2020-08-05] MEDS ORDERED: DOCUSATE 100 MG/10 ML SOLUTION. PO PRN (17:45)
[2020-08-05] MEDS ORDERED: LACTULOSE 20 GM/30 ML SOLUTION. PO ONE (17:45)
[2020-08-05 19:26] VITALS: BP 120/68
[2020-08-05 22:59] VITALS: BP 111/70
[2020-08-05] MEDS ORDERED: PEG 3350/NA SULF,BICARB,CL/KCL 4,000 ML SOLUTION. PO ONE (23:45)
[2020-08-05] MEDS ORDERED: METOCLOPRAMIDE HCL 10 MG/2 ML VIAL. IVP PRN (23:45)
[2020-08-06] MEDS: ONDANSETRON ODT 4 MG TAB.RAPDIS PO PRN (00:18)
[2020-08-06] MEDS: IV NORMAL SALINE 1,000ML 1,000 ML IV SCH ×2 (02:00→06:32)
[2020-08-06 05:07] VITALS: BP 125/78
[2020-08-06] MEDS ORDERED: POLYETHYLENE GLYCOL 3350 17 GM PACKET. PO SCH (09:00)
--- NOTE | 2020-08-06 09:38 | RAD ---
EXAMINATION: CT ABDOMEN+PELVIS WO (CT ABDOMEN/PELVIS WITHOUT IV CONTRAST) CLINICAL HISTORY: Constipation and pain TECHNIQUE: Non-IV contrast imaging of the abdomen and pelvis was performed using standard technique, scanning from just above the dome of the diaphragm to the symphysis pubis. Unenhanced imaging is haider ited for the evaluation of some intra-abdominal and pelvic pathology. CT Dose Reduction Employed: One or more of the following individualized dose reduction techniques wer e utilized for this examination: 1. Automated exposure control 2. Adjustment of the mA and/or kV ac cording to patient size 3. Use of iterative reconstruction technique. COMPARISON: Acute abdomen series 08/05/2020, CT abdomen/pelvis 07/30/2020 and 01/20/2016 FINDINGS: Mild bibasilar subsegmental atelectasis, increased from prior study. Small left infrahilar calcificat ion, likely an old calcified granuloma. Diffuse hypoattenuation of the hepatic parenchyma, compatible with steatosis. Nondistended gallbladde r suboptimally evaluated. Tiny calcification of the spleen, likely unremarkable calcified granuloma. Pancreas, adrenal glands, and kidneys unremarkable. Minimally filled urinary bladder. Prostate within normal limits. Redemonstration of lobular heterogeneous hyperdense mass anterior to the mid ascending colon. The mas s has enlarged from the previous study measuring 4.5 x 5.9 x 6.2 cm (AP x TRV x CC), previously 3.9 x 4.5 x 5.5 cm when measured in similar planes, as well as increased in mean attenuation measuring up to 65 HU on this noncontrast study, previously 50 HU on postcontrast study. There is also prominent m esenteric stranding and mild free fluid now surrounding the mass as well as wall thickening in the ad jacent small bowel. Mild free fluid also present in the anterior lower abdomen. No new enlarged lymph nodes. Small bowel and colon otherwise unremarkable. No significant colonic stool retention. Normal appendix . No abdominal aortic or iliac artery aneurysm. Osseous structures unchanged. IMPRESSION: Enlarged 6.2 cm heterogeneous mass anterior to the mid ascending colon with interval development of s urrounding inflammatory changes as described. This is nonspecific but differential includes neoplasm such as desmoid fibromatosis or soft tissue sarcoma with interval/increasing internal hemorrhage, int raperitoneal hematoma, or lymphoma. Electronically signed by: Amado Antonio DO (08/06/2020 9:36 AM) [id number]
[2020-08-06] MEDS ORDERED: SIMETHICONE 80 MG TAB.CHEW PO PRN (10:00)
[2020-08-06 10:45] VITALS: BP 112/73
[2020-08-06] MEDS ORDERED: ONDA4TAB12 PO (13:00)
[2020-08-06] MEDS ORDERED: SIME80TA13 PO (13:00)
== END 2020-08-06 14:03 | disposition home or self-care (01) ==
LOC: ICU 18:42 → INTOOBSV 18:42 → 1 SOUTH 08-05 07:27
PROVIDERS: ADMIT Family Medicine; ATTEND Family Medicine
DX: K56.41 Fecal impaction (principal); R10.9 Unspecified abdominal pain; D72.829 Elevated white blood cell count, unspecified
CPT/HCPCS: 36415; 74022; 74176; 80048; 85007; 85025; 96360; 96361; 96372; G0378; G0379; J2212; J7030; Q0162

== ENCOUNTER → 2020-08-14 | Outpatient (CLI) | payer OTHER ==
[2020-08-06 10:45] VITALS: BP 112/73
[~2020-08-14] MED LIST changes: +ONDA4TAB12 PO; +SIME80TA13 PO
[2020-08-14 19:21] LABS: BASO # 0.1 x10^3/uL (0.0-0.2); BASO % 0 % (0-3); EOS % 0 % (0-3); HEMATOCRIT 36.8 % (39.0-53.0); HEMOGLOBIN 12.2 g/dL (13.0-17.5); LYMPH # 0.9 x10^3/uL (1.0-4.8); LYMPH % 3 % (24-48); MEAN CORPUSCULAR HEMOGLOBIN 27 pg (25-35); MEAN CORPUSCULAR HGB CONC 33 g/dL (31-37); MEAN CORPUSCULAR VOLUME 80 fL (79-100); MONO # 1.1 x10^3/uL (0.0-1.1); MONO % 4 % (0-9); NEUT % 93 % (31-73); PLATELET COUNT 398 x10^3/uL (140-400); RED CELL DISTRIBUTION WIDTH 13.3 % (11.5-14.5); WHITE BLOOD COUNT 29.1 x10^3/uL (4.0-11.0)
[2020-08-14 19:33] LABS: ALBUMIN 3.8 g/dL (3.4-5.0); ALBUMIN/GLOBULIN RATIO 0.9 (1.0-1.7); C REACTIVE PROTEIN 60.8 mg/L (0-3.3); CALCIUM 9.3 mg/dL (8.5-10.1); CREATININE 1.2 mg/dL (0.7-1.3); GFR 66.7; POTASSIUM 4.2 mmol/L (3.5-5.1); TOTAL BILIRUBIN 0.5 mg/dL (0.2-1.0); TOTAL PROTEIN 7.9 g/dL (6.4-8.2)
[2020-08-14 20:10] LABS: % BANDS 11 % (0-9); % LYMPHS 4 % (24-48); % MONOS 5 % (0-10); % SEGS 80 % (35-66); PLT ESTIMATE ADEQUATE (ADEQUATE)
== END ==
LOC: LAB 18:26
PROVIDERS: ATTEND Family Medicine
DX: J16.8 Pneumonia due to other specified infectious organisms (principal)
CPT/HCPCS: 36415; 80053; 83605; 84145; 85007; 85025; 86140

== ENCOUNTER 2021-04-13 02:26 | Emergency (ER) | payer OTHER ==
[~2021-04-13] VITALS: Ht 175.3 cm; Wt 92.1 kg
[2021-04-13] MEDS ORDERED: NOREPINEPHRINE BITARTRATE 4 MG/4 ML VIAL. IV ONE (02:42)
[2021-04-13] MEDS ORDERED: IV DEXTROSE 5% 250 ML IV ONE (02:42)
--- NOTE | 2021-04-13 02:42 | PHYS DOC ---
Past History Past Medical History: Constipation, Other Additional Past Medical Histor: chronic necl pain Past Surgical History: No Surgical History Smoking: Non-smoker Alcohol Use: Occasionally Drug Use: None Adult General Chief Complaint Chief Complaint: ABDOMINAL PAIN HPI HPI Patient is a 40-year-old male with a past medical history of endorsed liver cancer versus cholangiocarcinoma who presents to the emergency department via EMS for abdominal pain, and nausea that started earlier today. States he is currently not on chemotherapy, radiation and has had no surgery. Stating he is waiting for approval to start chemotherapy. Denies recent travels, traumas, fevers, chest pain, shortness of breath, dysuria, hematuria, blood in the stool or diarrhea. Denies any known ill contacts. States he had a couple episodes of nausea and vomiting today nonbloody ileus. Review of Systems Review of Systems Review of systems otherwise unremarkable except noted in HPI Allergies Allergies Allergies Coded Allergies Type Severity Reaction Last Updated Verified Penicillins Allergy Intermediate 01/20/16 Yes cephalexin Allergy Intermediate 01/20/16 Yes Physical Exam Physical Exam Constitutional: Well developed, well nourished, patient appears ill and diaphoretic HENT: Normocephalic, atraumatic, oropharynx dry, no oral exudates, nose normal. [] Eyes: conjunctiva normal, no discharge. [] Neck: Normal range of motion, no tenderness, supple, no stridor. [] Cardiovascular:Heart rate regular rhythm, no murmur [] Lungs & Thorax: Bilateral breath sounds clear to auscultation [] Abdomen: Bowel sounds normal, soft, no tenderness, no masses, no pulsatile masses. [] Skin: Cool, dry and appears pale to yellow Back: no CVA tenderness. [] Extremities: No tenderness, no cyanosis, no clubbing, ROM intact, no edema. [] Neurologic: Alert and oriented X 3, normal motor function, normal sensory function, no focal deficits noted. [] Psychologic: Affect normal, judgement normal, mood normal. [] EKG EKG [] Radiology/Procedures Radiology/Procedures [] Heart Score C/O Chest Pain: No Risk Factors: Risk Factors: DM, Current or recent (<one month) smoker, HTN, HLP, family history of CAD, obesity. Risk Scores: Risk Factors: DM, Current or recent (<one month) smoker, HTN, HLP, family history of CAD, obesity. Course & Med Decision Making Course & Med Decision Making Patient is a 40-year-old male with liver or biliary cancer presents with abdominal pain, nausea and vomiting Vital signs notable for tachycardia, hypotension and hypothermia as well as tachypnea but no hypoxia. Physical exam noted above. Patient placed on the monitor with IV access established. IV fluid resuscitation begun. Started on pressors given hypotension and concern for septic shock. Started on antibiotics. Cultures obtained. Laboratory analysis notable for normocytic anemia, leukocytosis, PIETER, elevated lactate. Given patient's shock state, released the unit of O- blood for infusion while waiting for crossmatch. Continued on fluids, antibiotics, low-dose Levophed and blood. Patient seen to respond well with vital signs improving as well as overall mentation, and skin color. Pain controlled as well. Discussed all findings with patient and recommended admission to the hospital for continued evaluation and treatment of his shock state, septic versus blood loss possibly secondary to his known neoplasm. Patient grateful, verbalized understanding agree with plan of transfer admission to . Critical care time 60 minutes Randy Disclaimer Dragon Disclaimer This electronic medical record was generated, in whole or in part, using a voice recognition dictation system. Departure Departure: Impression: Primary Impression: Shock Additional Impressions: Sepsis Anemia Liver cancer Disposition: 02 SHORT TERM HOSPITAL Condition: STABLE Referrals: JARAD MESA MD (PCP) Problem Qualifiers MARIA C BRINK MD Apr 13, 2021 02:42
[2021-04-13] MEDS ORDERED: IV RINGERS SOLUTION,LACTATED 1,000 ML IV ONE (02:45)
[2021-04-13] MEDS ORDERED: IOHEXOL 300 MG/ML 75 ML VIAL. IV ONE (02:45)
[2021-04-13] MEDS ORDERED: ONDANSETRON PF 4 MG/2 ML VIAL. IVP ONE (02:45)
[2021-04-13] MEDS ORDERED: CONTRAST GIVEN. MC PRN (02:45)
[2021-04-13] MEDS: NOREPINEPHRINE BITARTRATE 8 MG in IV DEXTROSE 5% 250 ML IV PRN (03:05)
[2021-04-13 03:18] LABS: BASO # 0.1 x10^3/uL (0.0-0.2); BASO % 1 % (0-3); EOS # 0.1 x10^3/uL (0.0-0.7); EOS % 0 % (0-3); LYMPH # 1.7 x10^3/uL (1.0-4.8); LYMPH % 9 % (24-48); MEAN CORPUSCULAR HEMOGLOBIN 25 pg (25-35); MEAN CORPUSCULAR HGB CONC 31 g/dL (31-37); MEAN CORPUSCULAR VOLUME 81 fL (79-100); MONO # 1.3 x10^3/uL (0.0-1.1); MONO % 7 % (0-9); NEUT # 16.2 x10^3uL (1.8-7.7); NEUT % 84 % (31-73); PLATELET COUNT 145 x10^3/uL (140-400); RED BLOOD COUNT 2.43 x10^6/uL (4.30-5.70); RED CELL DISTRIBUTION WIDTH 17.1 % (11.5-14.5); WHITE BLOOD COUNT 19.3 x10^3/uL (4.0-11.0)
[2021-04-13 03:34] LABS: BACTERIA,URINE 0 /HPF (0-FEW); BILIRUBIN,URINE NEG (NEG); CLARITY,URINE CLEAR; COLOR,URINE YELLOW; GLUCOSE,URINE NEG (NEG); NITRITE,URINE NEG (NEG); RBC,URINE 0 /HPF (0-2); SQUAMOUS EPITHELIAL CELL,UR OCC /LPF; WBC,URINE RARE /HPF (0-4)
[2021-04-13 03:36] LABS: CALCIUM 8.3 mg/dL (8.5-10.1); CREATININE 1.4 mg/dL (0.7-1.3); GFR 55.6; POTASSIUM 4.5 mmol/L (3.5-5.1)
[2021-04-13 03:38] LABS: HEMOGLOBIN 6.1 g/dL (13.0-17.5)
[2021-04-13 03:39] LABS: HEMATOCRIT 19.7 % (39.0-53.0)
[2021-04-13 03:42] LABS: ALBUMIN 2.9 g/dL (3.4-5.0); ALBUMIN/GLOBULIN RATIO 0.9 (1.0-1.7); MAGNESIUM 2.2 mg/dL (1.8-2.4); TOTAL BILIRUBIN 1.3 mg/dL (0.2-1.0); TOTAL PROTEIN 6.2 g/dL (6.4-8.2)
--- NOTE | 2021-04-13 04:11 | EKG ---
[address] [address] Test Date: 2021-04-13 Test Time: 04:03:44 Pat Name: MIGDALIA COSTELLO Department: Room: Gender: M Object Oriented Developer: BRYCE : 1980 Requested By: MARIA C BRINK Order Number: [id number] Reading MD: Silvio Chen Measurements Intervals Energy Rate: 124 P: 51 NV: 106 QRS: 64 QRSD: 84 T: 8 QT: 308 QTc: 446 Interpretive Statements SINUS TACHYCARDIA Electronically Signed On 04-15-2021 9:55:46 PROTECTION MANAGER by Silvio Chen
[2021-04-13 04:28] VITALS: BP 91/45
[2021-04-13] MEDS ORDERED: IV NORMAL SALINE 500ML 500 ML ONE (04:28)
[2021-04-13 04:31] LABS: BGAS PH 7.61 (7.35-7.46)
[2021-04-13 04:39] LABS: % BANDS 2 % (0-9); % EOS 1 % (0-5); % LYMPHS 7 % (24-48); % MONOS 1 % (0-10); % SEGS 89 % (35-66); ANISOCYTOSIS SLIGHT; PLT ESTIMATE ADEQUATE (ADEQUATE)
[2021-04-13 04:43] VITALS: BP 105/68
[2021-04-13 04:58] VITALS: BP 108/58
--- NOTE | 2021-04-13 05:34 | RAD ---
XR CHEST 1V History: Sepsis workup Comparison: CT chest 04/13/2021. Technique: Portable AP radiograph of the chest. Findings: Left subclavian central venous catheter with tip at the right atrium. The lungs are hypoinflated with bibasilar opacities likely atelectasis. No pleural effusion or pneumothorax. Cardiac silhouette is a ccentuated by low lung volumes. Osseous structures and soft tissues are unremarkable. Impression: 1. Low lung volumes with bilateral atelectasis. 2. Left subclavian central venous catheter with tip at the right atrium. Electronically signed by: Gregorio Perkins MD (04/13/2021 5:32 AM) [facility]
--- NOTE | 2021-04-13 05:49 | RAD ---
CT CHEST+ABD+PELVIS W History: Sepsis. Cancer workup. History of cholangiocarcinoma and liver cancer. Comparison: CT abdomen pelvis 08/06/2020. CT chest 02/28/2020. Technique: CT of the chest, abdomen and pelvis with intravenous contrast. Findings: Chest: Devices: Left subclavian approach Mediport with tip at the right atrium. Pulmonary arteries: No large or central pulmonary embolism. Aorta and great vessels: No aneurysm of the aortic arch or thoracic aorta is seen. No atherosclerotic calcification. Heart: The heart is normal in size. There is no pericardial effusion. No coronary artery calcificatio n. Thyroid: No significant abnormalities. Mediastinum and amirah: No mediastinal masses or adenopathy is seen. Esophagus: Patulous esophagus with fluid. Airways, Lungs, Pleura: The airways are clear. Bilateral basilar atelectatic change. Redemonstrated c alcified parenchymal granulomas. New 7 mm groundglass nodule superior segment right lower lobe (axial 33). New 3 mm right upper lobe nodule (axial 29). No pleural effusion or pneumothorax. Soft tissue and osseous: Unremarkable. Abdomen/Pelvis: General abdomen: Mild ascites. No free air. Liver : Enlarged liver, nearly replaced with innumerable confluent mixed vascular and hypodense kaleigh s consistent with extensive metastatic disease. Gallbladder/Biliary Tree: Nondistended gallbladder without stones. The common bile duct is not dilate d. Pancreas: Normal. Spleen: A few punctate calcified granulomas. Adrenal glands: Normal. Kidneys: No hydronephrosis or hydroureter. No renal masses identified. Gastrointestinal: Small sliding hiatal hernia with fluid in the distal esophagus. The small bowel is unremarkable. No pericolonic inflammatory changes. No small bowel obstruction. Lymph nodes: Redemonstrated right lower quadrant mass measuring 4 x 3.6 x 3.9 cm intervally decreased in size from comparison. Shotty retroperitoneal periaortic lymph nodes. Vessels: Unremarkable. Pelvic Organs: Unremarkable reproductive organs. No pelvic masses. Decompressed bladder. Soft tissues: Unremarkable. Bones: No acute or aggressive lesions. Impression: 1. Extensive hepatic metastatic disease from reported cholangiocarcinoma with near-complete replacem ent of the liver with confluent mixed hypodense and enhancing masses. 2. New small pulmonary nodules may represent metastatic disease or infectious/inflammatory nodules. Recommend attention on follow-up. 3. Mild ascites. 4. Interval decrease in size of right mid abdominal ovoid solid mass, previously described July. 5. Small hiatal hernia with patulous distal esophagus containing fluid level. Concern for reflux and /or aspiration risk. 6. Hypoventilation with bibasilar atelectasis. No airspace consolidation. ------ Exposure: One or more of the following individualized dose reduction techniques were utilized for thi s examination: 1. Automated exposure control 2. Adjustment of the mA and/or kV according to patient size 3. Use of iterative reconstruction technique. Electronically signed by: Gregorio Perkins MD (04/13/2021 5:46 AM) [facility]
[2021-04-13 05:58] VITALS: BP 106/60
[2021-04-13 06:01] VITALS: BP 104/62
== END 2021-04-13 06:14 | disposition short-term general hospital (02) ==
LOC: ER 02:26
DX: A41.9 Sepsis, unspecified organism (principal); R65.21 Severe sepsis with septic shock; D64.9 Anemia, unspecified; Z85.05 Personal history of malignant neoplasm of liver; Z88.0 Allergy status to penicillin; Z88.1 Allergy status to other antibiotic agents
CPT/HCPCS: 36415; 36430; 36600; 71045; 71260; 74177; 80053; 81001; 82803; 83605; 83690; 83735; 84484; 85007; 85025; 85384; 85610; 85730; 86850; 86900; 86901; 86920; 93005; 96365; 96366; 96368; 96375; 99291; J1956; J2405; J3010; J7120; P9016; Q9967